=== PATIENT | female | born 1980 | race Caucasian/White ===

== ENCOUNTER 2022-05-19 03:21 | Emergency (ER) | payer MEDICAID ==
--- NOTE | 2022-05-19 05:12 | XRay Report ---
LEFT FOOT 3 VIEWS. INDICATION / CLINICAL INFORMATION: INJURY TO 4TH DIGIT COMPARISON: None available. FINDINGS: Toenail decoration partially obscures the tips of multiple toes. No fracture, dislocation, or signifi cant soft tissue abnormality is demonstrated. No radiopaque foreign bodies are identified. IMPRESSION: 1. No displaced fractures involve the left foot. Signer Name: José Luis Brasher II, MD Signed: 05/19/2022 5:08 AM Workstation Name: [id number]
[2022-05-19] MEDS ORDERED: KETOROLAC 10 MG TAB PO ONE (10:16)
--- NOTE | 2022-05-19 10:24 | Emergency Department Report ---
ED Lower Extremity HPI - General Chief Complaint: Extremity Injury, Lower Stated Complaint: LT TOE INJURY Time Seen by Provider: 05/19/22 09:41 Source: patient Mode of arrival: Ambulatory Limitations: No Limitations - History of Present Illness Initial Comments: 42-year-old black female with no past medical history presents to the emergency department for evaluation of left fourth toe injury. She states that she hit her left toe while attempting to change the tire of her car, and has had increased pain, swelling, and discoloration since then. She states that she has pain when she ambulates and she states that pain at its worst is 7 out of 10. Complaint: foot injury -: Sudden, Last night Injury: Toes: Left Type of Injury: blunt Place: street/outdoors Severity: moderate Severity scale (0 -10): 7 Associated Symptoms: swelling. denies: snap/pop sensation, numbness, tingling, unable to bear weight - Related Data Previous Rx's Medication Instructions Recorded Last Taken Type Naproxen [Naprosyn] 500 mg PO BID #14 tab 05/19/22 Unknown Rx Allergies Allergy/AdvReac Type Severity Reaction Status Date / Time No Known Allergies Allergy Verified 05/19/22 04:36 ED Review of Systems ROS: Stated complaint: LT TOE INJURY Other details as noted in HPI Comment: All other systems reviewed and negative Constitutional: denies: chills, fever Respiratory: denies: shortness of breath Cardiovascular: denies: chest pain Neurological: denies: headache ED Past Medical Hx - Medications Home Medications: Home Medications Medication Instructions Recorded Confirmed Last Taken Type Naproxen [Naprosyn] 500 mg PO BID #14 tab 05/19/22 Unknown Rx ED Physical Exam - General Limitations: No Limitations General appearance: alert, in no apparent distress - Head Head exam: Present: atraumatic, normocephalic - Eye Eye exam: Present: normal appearance. Absent: conjunctival injection - Neck Neck exam: Present: normal inspection - Respiratory Respiratory exam: Absent: respiratory distress - Cardiovascular Cardiovascular Exam: Present: regular rate - GI/Abdominal GI/Abdominal exam: Absent: distended - Expanded Lower Extremity Exam Left Foot/Toe exam: Present: tenderness (Fourth toe), swelling (Fourth toe), ecchymosis (Fourth toe), erythema (Fourth toe). Absent: abrasion, laceration, deformity, crepidus Neuro vascular tendon exam: Present: no vascular compromise. Absent: pulse deficit, abnormal cap refill, motor deficit, sensory deficit, extremity cold to touch, pallor Gait: Positive: observed and limited by pain - Back Exam Back exam: Present: normal inspection - Neurological Exam Neurological exam: Present: alert, oriented X3 - Psychiatric Psychiatric exam: Present: normal affect, normal mood - Skin Skin exam: Present: warm, dry, intact, normal color - Orthopedic Splinting/Casting Injury #1 Side: left Lower Extremity Injury Location: toe Lower Extremity Immobilizer: post-op shoe ED Lower Extremity MDM - Medical Decision Making 42-year-old black female with no past medical history presents to the emergency department for evaluation of left fourth toe injury. She states that she hit her left toe while attempting to change the tire of her car, and has had increased pain, swelling, and discoloration since then. She states that she has pain when she ambulates and she states that pain at its worst is 7 out of 10. Left foot x-ray without any acute abnormalities noted. Patient noted to have swelling, tenderness, and discoloration to left fourth toe with pain with ambulation, so patient was placed in postop shoe and given one-time dose of Toradol 10 mg p.o. She will be discharged home with naproxen to take as directed and advised to follow-up with her primary care provider if no improvement or worsening symptoms return to the emergency department as needed. She verbalizes understanding of and agreement with plan of care. Critical care attestation.: If time is entered above; I have spent that time in minutes in the direct care of this critically ill patient, excluding procedure time. ED Disposition Clinical Impression: Toe pain, left Disposition: 01 HOME / SELF CARE / HOMELESS Is pt being admited?: No Does the pt Need Aspirin: No Condition: Stable Instructions: How to Use Cold Therapy, [id number], Musculoskeletal Pain Additional Instructions: Take medications as prescribed. Follow-up with your primary care provider if no improvement or worsening symptoms. Return to the emergency department as needed. Prescriptions: Naproxen [Naprosyn] 500 mg PO BID #14 tab Referrals: SILVERIO MCDERMOTT MD [Staff Physician] - 3-5 Days Time of Disposition: 10:27
[2022-05-19 11:00] VITALS: BP 121/70
== END 2022-05-19 10:58 | disposition home or self-care (01) ==
LOC: ED 03:21
DX: M79.675 Pain in left toe(s) (principal)
CPT/HCPCS: 99283